=== PATIENT | male | born 2000 | race African-American/Black ===

== ENCOUNTER 2022-02-23 10:21 | Emergency (ER) | payer MEDICAID, OTHER ==
[~2022-02-23] VITALS: Ht 185.4 cm; Wt 99.4 kg
--- NOTE | 2022-02-23 10:32 | NUR ---
Patient ambulated to bed 6.
[2022-02-23 10:34] VITALS: BP 112/75
--- NOTE | 2022-02-23 10:38 | NUR ---
Maria E black in [facility] - 02/23/22 at [address] Schmitz evaluating patient at bedside.
[2022-02-23 10:46] VITALS: BP 112/75
--- NOTE | 2022-02-23 10:50 | NUR ---
22 y/o male bib self with c/o left chest area pain s/p lifting a box from work x today. Per patient, pain is only there when lifting objects or certain movements. At rest patient has no pain. Patient denies taking any medication prior to ER arrival. Medical History: Denies NKDA
--- NOTE | 2022-02-23 10:54 | NUR ---
Dr. Schmitz evaluating patient at bedside.
[2022-02-23] MEDS ORDERED: IBUP-2213 PO (10:55)
--- NOTE | 2022-02-23 11:09 | NUR ---
Patient discharged with v/s stable. Written and verbal after care instructions given. Patient alert, oriented and verbalized understanding of instructions. Ambulatory with steady gait. All questions addressed prior to discharge. ID band removed. Patient advised to follow up with PMD. Rx of Ibuprofen given. Opportunity to ask questions provided and answered. WORK NOTE HANDED TO PATIENT.
--- NOTE | 2022-02-23 11:18 | NUR ---
The patient's care was reviewed and supervised by [facility], RN.
== END 2022-02-23 11:09 | disposition home or self-care (01) ==
LOC: MED 10:21
DX: S29.011A Strain of muscle and tendon of front wall of thorax, initial encounter (principal); X50.0XXA Overexertion from strenuous movement or load, initial encounter; Y92.89 Other specified places as the place of occurrence of the external cause; Y93.89 Activity, other specified; Y99.0 Civilian activity done for income or pay
CPT/HCPCS: 93005; 99283